=== PATIENT | female | born 1970 | race Caucasian/White ===

== ENCOUNTER 2021-05-11 12:16 | Emergency (ER) | payer OTHER, SELFPAY ==
--- NOTE | ~2021-05-11 | XR_ITS ---
EXAMINATION: XR chest 1V portable 05/11/2021 12:48 INDICATION: Dizziness. Chest palpitations. PROCEDURE: AP portable chest COMPARISON: 01/08/2006. FINDINGS: The lungs are clear. The cardiomediastinal silhouette is within normal limits. There are no pleural effusions. There is no pneumothorax suspected. IMPRESSION: 1: NO ACUTE CARDIOPULMONARY DISEASE. Reviewed, dictated and finalized at location A.
--- NOTE | ~2021-05-11 | CT_ITS ---
EXAMINATION: CT BRAIN W/O DATE: 05/11/2021 12:53 INDICATION: Dizziness TECHNIQUE: Computed tomography (CT) of the head was performed without intravenous contrast. The dose- length product was 605.33 mGy-cm. The mA was adjusted according to patient size. Iterative reconstruc tion technique was employed. COMPARISON: No prior studies for comparison. FINDINGS: Normal brain parenchymal volume for age. Normal wilburn-white differentiation. No acute intrac ranial hemorrhage, infarction, mass or mass effect. There is a hypodense structure extending superior ly in posterior sella turcica measuring 12 x 9 mm. No ventriculomegaly or midline shift. Midline sagittal images demonstrate a normal corpus callosum, c raniovertebral junction. Basilar cisterns are patent. There is mucosal thickening of the maxillary, ethmoid and left sphenoid sinuses. IMPRESSION: 1. Hyperdense mass extending superiorly and posteriorly to the sella turcica measuring 12 mm maximum dimension. Differential diagnosis includes exophytic pituitary mass and aneurysm. 2: No acute intracranial hemorrhage, infarction, mass or mass effect. 3: Sinusitis. Reviewed, dictated and finalized at location A. IMPRESSION: 1. Hyperdense mass extending superiorly and posteriorly to the sella turcica me asuring 12 mm maximum dimension. Differential diagnosis includes exophytic pitu itary mass and aneurysm. 2: No acute intracranial hemorrhage, infarction, mass or mass effect. 3: Sinusitis.
[2021-05-11 12:19] VITALS: BP 140/81; PULSE 99; RESP 16; O2SAT 100
--- NOTE | 2021-05-11 12:29 | ECG_ITS ---
Measurements Intervals [place] Rate: 99 P: 51 AK: 136 QRS: 15 QRSD: 88 T: 30 QT: 358 QTc: 460 Interpretive Statements SINUS RHYTHM BASELINE ARTIFACT- I, II, III, AVL, AVF, V4 NORMAL ECG Electronically Signed On 05-11-2021 17:46:16 CDT by Jonathon Escobar D.O.
[2021-05-11 13:15] LABS: Basophils Absolute Auto 0.1 K/mm3 (0.0-0.1); Basophils Percent Auto 1.2 % (0.2-1.2); Eosinophils Absolute Auto 0.3 K/mm3 (0-0.3); Eosinophils Percent Auto 2.9 % (0-4.4); Hematocrit 38.3 % (37.0-47.0); Hemoglobin 12.8 g/dL (12.0-15.0); Immature Granulocyte Absolute 0.02 K/mm3 (0.00-0.031); Immature Granulocyte Percent A 0.2 % (0-0.5); Lymphocytes Absolute Auto 1.68 K/mm3 (0.9-3.2); Lymphocytes Percent Auto 19.6 % (18.3-44.2); Mean Corpuscular HGB Conc 33.4 g/dl (32-36); Mean Corpuscular Hemoglobin 33.5 pg (26-34); Mean Corpuscular Volume 100.3 fl (80-100); Mean Platelet Volume 9.6 fl (7.4-10.4); Monocytes Absolute Auto 0.5 K/mm3 (0.1-0.6); Monocytes Percent Auto 5.5 % (2.6-8.5); Neutrophils Absolute Auto 6.1 K/mm3 (1.3-6.7); Neutrophils Percent Auto 70.6 % (45.5-73.1); Platelet Count Result 273 k/mm3 (150-375); Red Blood Count 3.82 M/mm3 (4.2-5.4); Red Cell Distribution Width 12.7 % (11.5-14.5); White Blood Count 8.6 K/mm3 (4.5-10.0)
[2021-05-11 13:17] LABS: Add Urine Microscopic? NO; Appearance Urine Clear (Clear); Bilirubin Urine Negative (Negative); Blood Urine Negative (Negative); Color Urine Straw (Yellow); Glucose Urine UA Negative (Negative); Ketones Urine Negative (Negative); Leukocyte Esterase Ur Negative LEU/UL (Negative); Nitrate Urine Negative (Negative); Protein Urine Negative (Negative); Specific Grav Ur 1.005 (1.001-1.035); Urobilinogen Urine Negative mg/dL (<2.0)
[2021-05-11 13:25] LABS: Alanine Aminotransferase 89 U/L (4-35); Albumin Level 4.4 g/dL (3.5-5.1); Alkaline Phosphatase 56 U/L (38-126); Anion Gap 12 mmol/L (8-16); Aspartate Amino Transferase 83 U/L (14-36); Bilirubin,Total 0.3 mg/dL (0.2-1.3); Blood Urea Nitrogen 9 mg/dL (7-17); Calcium 9.2 mg/dL (8.4-10.2); Carbon Dioxide 27 mmol/L (22-30); Chloride 103 mmol/L (98-107); Estimated CRCL calculation 78 ml/min; Estimated Glomerular Filt Rate > 60; Glucose 95 mg/dL (65-110); Potassium 3.8 mmol/L (3.4-5.0); Sodium 142 mmol/L (137-145)
--- NOTE | 2021-05-11 13:28 | ED.DIZZY ---
HPI - Dizziness General Chief Complaint: Dizziness Stated Complaint: dizzy, palpitations Time Seen by Provider: 05/11/21 12:29 Source: patient, RN notes reviewed and old records reviewed Mode of arrival: ambulatory Limitations: no limitations History of Present Illness HPI Narrative: Patient is 50 years old white female complaining of dizziness and heart beating weird started 6 AM while taking a shower, comes and goes until she got to work. At work she was bending over and she feels like maybe she going to lose her balance and fall on the ground. Patient works as a nurse at the [employer], currently dull headache otherwise no dizziness or palpitation at this time. Patient is telling me that she have history of pituitary tumor hemorrhage years ago and supposed to have CT of the head every year, did not have it 3 years ago. Patient have a lot of stress lately. History of hysterectomy and hormonal therapy, attention deficit syndrome. Patient does not smoke or uses drugs but she drinks occasionally. Patient denies any fever, chills, nausea, vomiting, chest pain, shortness of breath.. Related Data Allergies Allergy/AdvReac Type Severity Reaction Status Date / Time No Known Allergies Allergy Unknown NONE Unverified 05/11/21 12:28 Review of Systems Review of Systems: CONSTITUTIONAL: Denies fever, chills, or sweats. EYES: Denies visual changes, redness, or discharge. ENT: Denies rhinorrhea, congestion, sore throat, or otalgia. CARDIOVASCULAR: Denies chest pain, palpitations, or edema. RESPIRATORY: Denies cough or dyspnea. GASTROINTESTINAL: Denies abdominal pain, nausea, vomiting, or diarrhea. GENITOURINARY: Denies dysuria or hematuria. SKIN: Denies rash or itching. MUSCULOSKELETAL: Denies back pain, joint pain, or myalgia. NEUROLOGIC: Denies headache, numbness, or weakness. PSYCHIATRIC: Denies anxiety or depression. Exam Narrative: General appearance: Well-developed, well-nourished, anxious Skin: Normal color Head: Normocephalic, nontraumatic Eyes: Clear conjunctiva ENT: Oropharynx normal, ears normal, nose normal Neck: Supple, nontender Chest and respiratory: Airway patent, no respiratory distress, no accessory muscle use Heart: Regular rate/rhythm Abdomen: Soft, nontender, no organomegaly, quiet bowel sounds Vascular: Normal peripheral pulses, normal capillary refill. 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 She preferred to get MRI as outpatient. And telling me that she is familiar with her symptoms and is not a big deal. Patient is planning to sign AMA. Date: 05/11/21 Time: 15:27 Consultations Consultation #1: Dr. Murrell, neurosurgeon at [facility] accepted patient transfer to the ED for head MRI. Date: 05/11/21 Time: 15:26 Vital Signs Vital signs: Vital Signs Pulse Rate 99 05/11/21 12:19 Respiratory Rate 16 05/11/21 12:19 Blood Pressure 140/81 05/11/21 12:19 Pulse Oximetry 100 05/11/21 12:19 Pulse Rate 99 05/11/21 12:19 Respiratory Rate 16 05/11/21 12:19 Blood Pressure 140/81 05/11/21 12:19 Pulse Oximetry 100 05/11/21 12:19 MDM - Dizziness MDM Narrative Medical decision making narrative: Patient presents with dizziness and palpitation, anxiety-like reaction is my concern. Patient does not have risk factors for cardiovascular disorder. Patient been intermittently hyperventilation during examination. Declined to take any Ativan at this time. Differential Diagnosis Dif
[2021-05-11 13:37] LABS: Troponin I < 0.012 ng/mL (0.000-0.034)
[2021-05-11 13:44] LABS: Barbiturate Screen Urine Negative (Negative); Benzodiazepines Screen Urine Negative (Negative)
[2021-05-11 13:45] LABS: Amphetamine Screen Urine Positive (Negative); Cannabinoid Screen Urine Negative (Negative); Methadone Screen Urine Negative (Negative); Opiate Screen Urine Negative (Negative); Phencyclidine Screen Urine Negative (Negative)
[2021-05-11 14:00] VITALS: BP 137/87; PULSE 81; RESP 14; O2SAT 100
[2021-05-11 15:45] VITALS: BP 135/105; PULSE 80; RESP 16; TEMP 36.5; O2SAT 98
[2021-05-11 16:42] LABS: Cocaine Screen Urine Negative (Negative)
== END 2021-05-11 15:48 | disposition home or self-care (01) ==
PROVIDERS: Emergency Provider Emergency Medicine; PCP Internal Medicine
DX: R42 Dizziness and giddiness (principal); R00.2 Palpitations; E23.7 Disorder of pituitary gland, unspecified; J32.9 Chronic sinusitis, unspecified
CPT/HCPCS: 36415; 70450; 71045; 80053; 80307; 81003; 84484; 85025; 93005; 99284

== ENCOUNTER 2022-09-24 09:00 | Outpatient (NON) | payer OTHER, SELFPAY | END 2022-09-24 09:01 | disposition home or self-care (01) | LOC: ANHLAB 09-25 09:16 | PROVIDERS: PCP Family Medicine; Visit Provider Family Medicine | DX: Z12.11 Encounter for screening for malignant neoplasm of colon (principal); Z12.12 Encounter for screening for malignant neoplasm of rectum | CPT/HCPCS: 88305 ==

== ENCOUNTER 2022-09-24 10:21 | Day surgery (SDC) | payer OTHER, SELFPAY ==
[2022-08-28 11:40] VITALS: BMI 26.5
--- NOTE | 2022-09-23 15:16 | WPDANESEPPF ---
Anes - Initial Pre Proc Eval Procedure: Operation Date: 09/24/22 12:30 Proposed Procedures p Esophagogastroduodenoscopy - Kosta Cruz MD s Diagnostic Colonoscopy - Kosta Cruz MD Date/Time: 09/23/22 15:16 Surgeon: Kosta Cruz MD Pre Op Diagnosis: Dysphagia, History of Polyps, Family HX Colon CA Patient Data Age: 52 Gender: F Height: 1.68 m Weight: 75 kg Allergies Allergy/AdvReac Type Severity Reaction Status Date / Time No Known Allergies Allergy Unknown NONE Verified 09/15/22 13:23 Home Medications Medication Instructions Recorded Confirmed Type estradiol 0.5 mg tablet 0.5 mg PO DAILY 02/05/22 09/15/22 History levothyroxine 1 tab-cap PO DAILY 07/31/22 09/15/22 History propranolol 10 mg tablet 10 mg PO DAILY PRN bp #30 tabs 07/31/22 09/15/22 Rx spironolactone 25 mg tablet 25 mg PO DAILY 07/31/22 09/15/22 History dextroamphetamine-amphetamine 20 20 mg PO BID #60 tabs 09/17/22 Rx mg tablet (Adderall) Patient hx anesthesia problems: none Family hx anesthesia problems: none Results Review: All pre-operative results and documents have been reviewed as part of the pre-operative evaluation. [facility] Past Medical History Medical History ADHD Asthma BMI 25.0-25.9,adult Breast cancer screening by mammogram normal mammogram 03/07/2022. Dysphagia Elevated BP without diagnosis of hypertension Elevated TSH Encounter to establish care Hx of colonic polyps Memory changes Pituitary tumor Surgical History Surgical History History of 1987,1990,1995 History of hysterectomy 2015 Hx of breast augmentation 2012 Hx of varicose vein ligation and stripping Family History Family History Father Hypertension Thyroid disease Mother Carcinoma of colon Hypertension Depression Thyroid disease Sibling Vaginal cancer Diabetes mellitus Cerebrovascular accident Grandparent Heart disease Grandparent Diabetes mellitus Heart disease Social History Social History (Reviewed 08/26/22 @ 14:17 by Kati Ledesma CMAReba Smoking status: Never smoker Alcohol intake: current Alcohol use details: socially Substance use: never Living arrangements: with family Spiritual care concerns: No Anes - Eval Final PreProcedure Day of Procedure 09/23/22 15:16 Patient weight: overweight Heart: regular rate and rhythm Lungs: clear to auscultation Airway: Mallampati scale class II Neurological: alert and oriented Last oral intake: >/= 8 hours ASA classification: II Emergent: no Anesthetic plan: proceed Anesthesia type and monitoring: general GIVS and standard monitoring Results Review: All pre-operative results and documents have been reviewed as part of the pre-operative evaluation. Informed Consent: The patient's anesthetic plan and its attendant risks and benefits were discussed with the patient/family/POA. Questions were solicited and answers provided to the satisfaction of the patient/family/POA.
--- NOTE | 2022-09-23 17:12 | PM.HPGS ---
History of Present Illness History of Present Illness Consent: Risks, benefits, and alternatives have been discussed and questions answered. Patient agrees to proceed with procedure. Chief complaint: Dysphagia, History of Polyps, Family HX Colon CA Narrative: Shameka Mcdonald is a 52 year old female who has had precancerous polyps on 2 occasions she recalls that she had colonoscopies every year for while, then every 3 years.? Also she has very strong family history of gastrointestinal cancer.? Both of her parents had cancer of the colon.? She has 6 brothers, all of whom have or had Barretts esophagus. She is not having any gastrointestinal symptoms at the present time except for dysphagia which is a chronic issue.? For several years she has had problems swallowing pills or meat.? She finds that she needs to cut meat up quite a bit.? In most cases seems that she can not get the food passed her throat and the base of her tongue.? She did at 1 point have a swallow evaluation at [place] ordered by the Neurosurgery Department.? She states that she was told that she has swallowing comparable to an 80-year-old. Review of Systems Review of Systems: All systems reviewed & are unremarkable except as noted in HPI and below PMFSH Past Medical History Medical History ADHD Asthma BMI 25.0-25.9,adult Breast cancer screening by mammogram normal mammogram 03/07/2022. Dysphagia Elevated BP without diagnosis of hypertension Elevated TSH Encounter to establish care Hx of colonic polyps Memory changes Pituitary tumor Surgical History Surgical History History of 1987,1990,1995 History of hysterectomy 2016 Hx of breast augmentation 2012 Hx of varicose vein ligation and stripping Family History Family History Father Hypertension Thyroid disease Mother Carcinoma of colon Hypertension Depression Thyroid disease Sibling Vaginal cancer Diabetes mellitus Cerebrovascular accident Grandparent Heart disease Grandparent Diabetes mellitus Heart disease Social History Social History Smoking status: Never smoker Alcohol intake: current Alcohol use details: socially Substance use: never Living arrangements: with family Spiritual care concerns: No Meds Home Medications and Allergies Home Medications Medication Instructions Recorded Confirmed Type estradiol 0.5 mg tablet 0.5 mg PO DAILY 02/05/22 09/15/22 History levothyroxine 1 tab-cap PO DAILY 07/31/22 09/15/22 History propranolol 10 mg tablet 10 mg PO DAILY PRN bp #30 tabs 07/31/22 09/15/22 Rx spironolactone 25 mg tablet 25 mg PO DAILY 07/31/22 09/15/22 History dextroamphetamine-amphetamine 20 20 mg PO BID #60 tabs 09/17/22 Rx mg tablet (Adderall) Allergies Allergy/AdvReac Type Severity Reaction Status Date / Time No Known Allergies Allergy Unknown NONE Verified 09/15/22 13:23 Exam Const: General: alert Orientation/consciousness: patient oriented x3 Resp: Auscultation: clear to auscultation bilaterally Cardio: Rhythm: regular rhythm GI: GI Palp: Yes Soft to palpation and No Tenderness to palpation present (GI) Neuro: General: patient oriented x3 Assessment and Plan Assessment and plan (1) Encounter for colorectal cancer screening: Code(s): Z12.11 - Encounter for screening for malignant neoplasm of colon; Z12.12 - Encounter for screening for malignant neoplasm of rectum Status: Acute Assessment and Plan: Colonoscopy with possible biopsy or polypectomy or cautery or injection of substances. (2) Dysphagia: Code(s): R13.10 - Dysphagia, unspecified Status: Acute Assessment and Plan: EGD with possible biopsy or dilatation or cautery.
[2022-09-24 11:10] VITALS: BP 124/86; PULSE 113; RESP 18; TEMP 36.7; O2SAT 100; BMI 25.4
[2022-09-24] MEDS: LACTATED RINGERS 1,000 ML 150 ML IV CONT (11:24)
--- NOTE | 2022-09-24 12:58 | SUR.OPER ---
esophageal ballon lot [id number] expires 2023
[2022-09-24 13:14] VITALS: BP 104/71; PULSE 94; RESP 18; O2SAT 99
[2022-09-24 13:24] VITALS: BP 95/53; PULSE 96; RESP 18; O2SAT 99
[2022-09-24 13:34] VITALS: BP 118/80; PULSE 88; RESP 18
--- NOTE | 2022-09-24 13:46 | SUR.PHASEII ---
1335; PT UP AND GETTING DRESSED. DENIES PAIN. AWAKE AND ALERT. STATES SHE IS READY TO GO HOME.
--- NOTE | 2022-09-24 14:31 | WPDANESPN ---
Anes - Prog Note Post-Op Date/Time: 09/24/22 14:31 Cardiovascular status: normal Respiratory status: normal Airway patency: baseline Mental status: baseline Post-Op hydration status: normal Vital Signs: Last Vital Signs Temp 36.7 C 09/24/22 11:10 Pulse 88 09/24/22 13:34 Resp 18 09/24/22 13:34 BP 118/80 09/24/22 13:34 Pulse Ox 99 09/24/22 13:24 O2 Del Method Room Air 09/24/22 13:34 Pain Score (VAS): 0 I/O: Intake & Output 09/23/22 09/24/22 09/24/22 23:59 07:59 15:59 Intake Total 800 Balance 800 Post-procedural complaints: none Patient Feedback: Patient satisfied with anesthetic care. Other Findings: Patient vital signs back to baseline. Patient denies nausea and vomiting. Patient's pain under control. Patient OK for discharge.
== END 2022-09-24 13:41 | disposition home or self-care (01) ==
PROVIDERS: PCP Family Medicine; Visit Provider Internal Medicine Gastroenterology
PROC: 0DJ08ZZ Inspection of Upper Intestinal Tract, Via Natural or Artificial Opening Endoscopic (ICD-10-PCS; CPT 43235; principal; 2022-09-24 12:30)
PROC: 0DJD8ZZ Inspection of Lower Intestinal Tract, Via Natural or Artificial Opening Endoscopic (ICD-10-PCS; CPT 45378; 2022-09-24 12:30)
DX: Z12.11 Encounter for screening for malignant neoplasm of colon (principal)
CPT/HCPCS: 45378; 43249; 43239

== ENCOUNTER 2023-12-29 07:00 | Outpatient (NON) | payer OTHER, SELFPAY | END 2023-12-29 07:01 | disposition home or self-care (01) | LOC: ANHLAB 12-30 08:04 | PROVIDERS: PCP Nurse Practitioner Family; Visit Provider Internal Medicine Gastroenterology | DX: K22.70 Barrett's esophagus without dysplasia (principal); Z83.79 Family history of other diseases of the digestive system | CPT/HCPCS: 88305 ==

== ENCOUNTER 2023-12-29 07:14 | Day surgery (SDC) | payer OTHER, SELFPAY ==
[2023-12-08 06:12] VITALS: BMI 24.9
[2023-12-29 08:29] VITALS: BP 120/88; PULSE 82; RESP 16; TEMP 36.9; O2SAT 100
[2023-12-29] MEDS: LACTATED RINGERS 1,000 ML 150 ML IV CONT (08:33)
--- NOTE | 2023-12-29 08:36 | WPDANESEPPF ---
Anes - Initial Pre Proc Eval Procedure: Operation Date: 12/29/23 10:00 Proposed Procedures p Esophagogastroduodenoscopy - Kosta Cruz MD Date/Time: 12/29/23 08:36 Surgeon: Kosta Cruz MD Pre Op Diagnosis: Collins's Esophagus Patient Data Age: 53 Gender: F Height: 1.68 m Weight: 68 kg Last Vital Signs Temp 36.9 C 12/29/23 08:29 Pulse 82 12/29/23 08:29 Resp 16 12/29/23 08:29 BP 120/88 12/29/23 08:29 Pulse Ox 100 12/29/23 08:29 O2 Del Method Room Air 12/29/23 08:29 Allergies Allergy/AdvReac Type Severity Reaction Status Date / Time No Known Allergies Allergy Unknown NONE Verified 12/29/23 08:27 Home Medications Medication Instructions Recorded Confirmed Type levothyroxine 25 mcg capsule 25 mcg PO DAILY 12/05/22 12/29/23 History propranolol 10 mg tablet 10 mg PO DAILY PRN bp #30 tabs 01/15/23 12/29/23 Rx semaglutide (weight loss) 0.5 0.5 mg subcut WEEKLY 01/15/23 12/29/23 History mg/0.5 mL subcutaneous pen injector spironolactone 100 mg tablet 100 mg PO DAILY #30 tabs 08/18/23 12/29/23 Rx dextroamphetamine-amphetamine 10 5 - 10 mg PO .3x/week #15 tabs 12/01/23 12/29/23 Rx mg tablet (Adderall) dextroamphetamine-amphetamine 20 20 mg PO BID #60 tabs 12/01/23 12/29/23 Rx mg tablet (Adderall) hydroxychloroquine 200 mg tablet 200 mg PO DIRECTED 12/11/23 12/29/23 History pantoprazole 40 mg tablet,delayed 40 mg PO DAILY 12/29/23 12/29/23 History release Patient hx anesthesia problems: none Family hx anesthesia problems: none Results Review: All pre-operative results and documents have been reviewed as part of the pre-operative evaluation. [facility] Past Medical History Medical History ADHD Arthralgia of multiple joints Asthma Barretts esophagus BMI 25.0-25.9,adult Breast cancer screening by mammogram normal mammogram 03/07/2022. Dysphagia Elevated BP without diagnosis of hypertension Elevated TSH Encounter to establish care Fatigue Gastroesophageal reflux disease with esophagitis (09/24/22) circumferential grade 3 reflux esophagitis with stricture at the GJ dilated on EGD 09/24/2022. Headache Hx of colonic polyps Colonoscopy normal except for diverticulosis 09/24/2022. Insomnia Left ankle pain Left ankle swelling Low back pain radiating to left leg Lower extremity pain, anterior Memory changes Pituitary tumor Surgical History Surgical History History of 1987,1990,1995 History of hysterectomy 2015 Hx of breast augmentation 2012 Hx of varicose vein ligation and stripping Family History Family History Father Hypertension Thyroid disease Mother Carcinoma of colon Hypertension Depression Thyroid disease Sibling Vaginal cancer Diabetes mellitus Cerebrovascular accident Grandparent Heart disease Grandparent Diabetes mellitus Heart disease Social History Social History Smoking status: Former smoker Tobacco type: cigarettes Smoking end date: 07/27/14 Alcohol intake: current Alcohol use details: 3 per day Substance use: never Substance use type: does not use Lack of Transportation: No Lack of Food: Never True Current Housing: I Have Housing Concerned About Future Housing: No Difficulty Paying Gas/Electric Bills: No Difficulty Paying for Meds: No Currently Unemployed: No Education: Master's Degree or Higher Difficulty w/ Childcare or Family Care: No Living arrangements: with family Occupation/Education: occupation Gender identity (if verbalized by the patient): Female Sexual Orientation (if Verbalized by the Patient): Straight or Heterosexual Spiritual care concerns: No Agree to blood products: Yes Anes - Eval Final PreProcedure Day
--- NOTE | 2023-12-29 09:30 | PM.HPGS ---
History of Present Illness History of Present Illness Consent: Risks, benefits, and alternatives have been discussed and questions answered. Patient agrees to proceed with procedure. Chief complaint: Collins's Esophagus Narrative: Shameka Mcdonald is a 53 year old female with Collins's found last year. At that time endoscopy was done for severe dysphagia is found to have a stricture as well severe esophagitis. She was dilated to only 16.5 mm at that time because of the marked inflammation. She has been taking pantoprazole faithfully andhas rare episodes of dysphagia now. Four brothers have had Collins's esophagus and her father had esophageal cancer. Review of Systems Review of Systems: All systems reviewed & are unremarkable except as noted in HPI and below PMFSH Past Medical History Medical History ADHD Arthralgia of multiple joints Asthma Barretts esophagus BMI 25.0-25.9,adult Breast cancer screening by mammogram normal mammogram 03/07/2022. Dysphagia Elevated BP without diagnosis of hypertension Elevated TSH Encounter to establish care Fatigue Gastroesophageal reflux disease with esophagitis (09/24/22) circumferential grade 3 reflux esophagitis with stricture at the GJ dilated on EGD 09/24/2022. Headache Hx of colonic polyps Colonoscopy normal except for diverticulosis 09/24/2022. Insomnia Left ankle pain Left ankle swelling Low back pain radiating to left leg Lower extremity pain, anterior Memory changes Pituitary tumor Surgical History Surgical History History of 1987,1990,1995 History of hysterectomy 2016 Hx of breast augmentation 2012 Hx of varicose vein ligation and stripping Family History Family History Father Hypertension Thyroid disease Mother Carcinoma of colon Hypertension Depression Thyroid disease Sibling Vaginal cancer Diabetes mellitus Cerebrovascular accident Grandparent Heart disease Grandparent Diabetes mellitus Heart disease Social History Social History Smoking status: Former smoker Tobacco type: cigarettes Smoking end date: 07/27/14 Alcohol intake: current Alcohol use details: 3 per day Substance use: never Substance use type: does not use Lack of Transportation: No Lack of Food: Never True Current Housing: I Have Housing Concerned About Future Housing: No Difficulty Paying Gas/Electric Bills: No Difficulty Paying for Meds: No Currently Unemployed: No Education: Master's Degree or Higher Difficulty w/ Childcare or Family Care: No Living arrangements: with family Occupation/Education: occupation Gender identity (if verbalized by the patient): Female Sexual Orientation (if Verbalized by the Patient): Straight or Heterosexual Spiritual care concerns: No Agree to blood products: Yes Meds Home Medications and Allergies Home Medications Medication Instructions Recorded Confirmed Type levothyroxine 25 mcg capsule 25 mcg PO DAILY 12/05/22 12/29/23 History propranolol 10 mg tablet 10 mg PO DAILY PRN bp #30 tabs 01/15/23 12/29/23 Rx semaglutide (weight loss) 0.5 0.5 mg subcut WEEKLY 01/15/23 12/29/23 History mg/0.5 mL subcutaneous pen injector spironolactone 100 mg tablet 100 mg PO DAILY #30 tabs 08/18/23 12/29/23 Rx dextroamphetamine-amphetamine 10 5 - 10 mg PO .3x/week #15 tabs 12/01/23 12/29/23 Rx mg tablet (Adderall) dextroamphetamine-amphetamine 20 20 mg PO BID #60 tabs 12/01/23 12/29/23 Rx mg tablet (Adderall) hydroxychloroquine 200 mg tablet 200 mg PO DIRECTED 12/11/23 12/29/23 History pantoprazole 40 mg tablet,delayed 40 mg PO DAILY 12/29/23 12/29/23 History release Allergies Allergy/AdvReac Type Severity Reaction Status Date / Time No Known Allergies Hugh
[2023-12-29 10:12] VITALS: BP 106/67; PULSE 78; RESP 16; O2SAT 99
[2023-12-29 10:22] VITALS: BP 112/80; PULSE 77; RESP 16; O2SAT 100
--- NOTE | 2023-12-29 10:27 | WPDANESPN ---
Anes - Prog Note Post-Op Date/Time: 12/29/23 10:27 Cardiovascular status: normal Respiratory status: normal Airway patency: baseline Mental status: baseline Post-Op hydration status: normal Vital Signs: Last Vital Signs Temp 36.9 C 12/29/23 08:29 Pulse 77 12/29/23 10:22 Resp 16 12/29/23 10:22 BP 112/80 12/29/23 10:22 Pulse Ox 100 12/29/23 10:22 O2 Del Method Room Air 12/29/23 10:22 Pain Score (VAS): 0 I/O: Intake & Output 12/28/23 12/29/23 12/29/23 23:59 07:59 15:59 Intake Total 650 Balance 650 Patient Feedback: Patient satisfied with anesthetic care.
[2023-12-29 10:32] VITALS: BP 130/80; PULSE 78; RESP 16; O2SAT 100
== END 2023-12-29 10:36 | disposition home or self-care (01) ==
PROVIDERS: PCP Nurse Practitioner Family; Visit Provider Internal Medicine Gastroenterology
PROC: 0DJ08ZZ Inspection of Upper Intestinal Tract, Via Natural or Artificial Opening Endoscopic (ICD-10-PCS; CPT 43235; principal; 2023-12-29 10:00)
DX: K22.70 Barrett's esophagus without dysplasia (principal); K22.2 Esophageal obstruction; R13.19 Other dysphagia; K21.9 Gastro-esophageal reflux disease without esophagitis; K44.9 Diaphragmatic hernia without obstruction or gangrene
CPT/HCPCS: 43249; 43239

== ENCOUNTER 2024-03-11 13:28 | Emergency (ER) | payer OTHER, SELFPAY ==
[2024-03-11 13:39] VITALS: BP 144/69; PULSE 101; RESP 18; TEMP 36.5; O2SAT 99
--- NOTE | 2024-03-11 16:55 | PC.NURSE ---
Pt called out at 1555, no answer. pt not in bathroom or outside.
== END 2024-03-11 19:04 | disposition left against medical advice (07) ==
LOC: ANHED 16:11
PROVIDERS: PCP Nurse Practitioner Family
DX: R22.42 Localized swelling, mass and lump, left lower limb (principal)
CPT/HCPCS: 99199